=== PATIENT | female | born 1975 | race Caucasian/White ===

== ENCOUNTER 2021-08-25 11:50 | Outpatient (CLI) | payer OTHER, SELFPAY ==
--- NOTE | ~2021-08-25 | MM_ITS ---
EXAMINATION: MM screening sanya BI w keith HISTORY: Screening mammogram TECHNIQUE: Craniocaudal and mediolateral oblique 3-D tomosynthesis images were obtained and synthetic 2-D images were generated. CAD analysis was submitted and interpreted. COMPARISON: No prior mammogram is available for comparison at this institution. BREAST PARENCHYMAL COMPOSITION: There are scattered areas of fibroglandular density. FINDINGS: RIGHT BREAST: There is no evidence of suspicious mass, calcification, or architectural distortion to suggest malignancy. LEFT BREAST: There is focal asymmetry and possible architectural distortion in the middle third of th e upper outer quadrant of the breast. IMPRESSION: 1. Focal asymmetry and possible architectural distortion of the left breast which may represent the p atient's baseline however no comparison is currently available. 2. Comparison with prior mammograms is necessary. BI-RADS Category 0: Incomplete: Needs comparison with prior mammograms. Reviewed, dictated and finalized at location A. 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 Focal asymmetry and possible architectural distortion of the left breast whi ch may represent the patient's baseline however no comparison is currently avai lable. 2. Comparison with prior mammograms is necessary. BI-RADS Category 0: Incomplete: Needs comparison with prior mammograms.
== END 2021-08-25 11:51 | disposition home or self-care (01) ==
LOC: CHSIMG 11:52
PROVIDERS: PCP Family Medicine; Visit Provider Nurse Practitioner Family
DX: Z12.31 Encounter for screening mammogram for malignant neoplasm of breast (principal)
CPT/HCPCS: 77063; 77067

== ENCOUNTER 2021-12-26 10:36 | Emergency (ER) | payer OTHER, SELFPAY ==
--- NOTE | ~2021-12-26 | CT_ITS ---
EXAMINATION: CT brain wo con DATE: 12/26/2021 11:54 INDICATION: Status post fall. Left forehead injury. TECHNIQUE: Computed tomography (CT) of the head was performed without intravenous contrast. The dose- length product was 681.00 mGy-cm. Automated exposure control and iterative reconstruction technique w ere employed. COMPARISON: None FINDINGS: There is bilateral frontal lobe encephalomalacia likely from prior trauma. There is left fr ontal scalp hematoma. No acute intracranial hemorrhage, infarction, mass or mass effect. No ventricul omegaly or midline shift. No depressed skull fractures. IMPRESSION: 1. No acute intracranial abnormality. 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 Reviewed, dictated and finalized at location A. IMPRESSION: 1. No acute intracranial abnormality. 2: Chronic bilateral frontal lobe encephalomalacia, likely from prior remote t rauma.
--- NOTE | ~2021-12-26 | CT_ITS ---
EXAMINATION: CT cervical spine wo con DATE: 12/26/2021 11:54 INDICATION: Neck pain after fall TECHNIQUE: Computed tomography (CT) of the cervical spine was performed without intravenous contrast. The dose-length product was 230 mGy-cm. Automated exposure control and iterative reconstruction tech [employer] were employed. COMPARISON: None FINDINGS: Normal cervical alignment. No fracture, subluxation or dislocation. Craniovertebral junctio n is normal. Odontoid process within normal limits. There are emphysematous changes in the lung apice s. No paraspinal soft tissue abnormality. IMPRESSION: 1. No acute fracture. Reviewed, dictated and finalized at location A. IMPRESSION: 1. No acute fracture.
--- NOTE | 2021-12-26 10:52 | ECG_ITS ---
Measurements Intervals [place] Rate: 93 P: 65 TN: 156 QRS: 59 QRSD: 98 T: 64 QT: 358 QTc: 447 Interpretive Statements SINUS RHYTHM NORMAL ECG NO PREVIOUS ECG AVAILABLE FOR COMPARISON Electronically Signed On 12-28-2021 9:02:07 CDT by Ezequiel Waggoner M.D.
--- NOTE | 2021-12-26 11:13 | ED.HEATRA ---
HPI - Head Injury General Chief complaint: Fall Stated complaint: fell & hit head on bathtub, dizzy, nauseous Source: patient and family Mode of arrival: ambulatory Limitations: no limitations History of Present Illness HPI Narrative: this is a 46-year-old female that presents from home after she was in the bathroom and unsure she slipped or tripped but had a fall and hit her head in the bathtub has a non gaping laceration to the left frontal scalp, currently having a headache, was given Tylenol prior to arrival to the emergency department. Patient is having some nausea with no episodes of vomiting and complaining of a headache and neck stiffness. Patient placed in a cervical collar, the patient has neural no neurological deficits no visual loss no abnormal visual acuity no chest pain no shortness of breath no fever chills. Currently the patient is not on any blood thinners. MD Complaint: head injury and head pain Onset (ago): hour(s) Arrival Conditions: C-spine immobilization present Mechanism of Injury: fall Place: home Loss of Consciousness: no Location of injury: frontal Severity: moderate Severity scale (1-10): 6 Quality: dull Radiation: neck Other Injuries: laceration Associated symptoms: nausea Related Data Home Medications Medication Instructions Recorded Confirmed ferrous sulfate 325 mg PO DAILY 12/26/21 12/26/21 lisinopril 10 mg PO DAILY 12/26/21 12/26/21 ropinirole 0.5 mg PO HS 12/26/21 12/26/21 simvastatin 20 mg PO DAILY 12/26/21 12/26/21 Allergies Allergy/AdvReac Type Severity Reaction Status Date / Time No Known Allergies Allergy Verified 12/26/21 11:16 Review of Systems Review of Systems: All systems reviewed & are unremarkable except as noted in HPI and below [facility] Past Medical History Medical History Patient denies medical problems Exam Const: General: healthy appearing, no acute distress and alert Orientation/consciousness: patient oriented x3 HENMT: Head: normal to inspection and contusion Eyes: Conjunctivae: conjunctivae normal Pupils: Equal, round and reactive pupils present EOM: EOMs intact bilaterally Direct Ophthalmoscopy: no photophobia Neck: Neck: normal visual inspection, no lymphadenopathy and no meningeal signs Chest: Chest palpation & inspection: normal inspection of the chest Resp: Effort & Inspection: normal respiratory effort Auscultation: clear to auscultation bilaterally Cardio: Rate: regular rate Rhythm: regular rhythm GI: GI Palp: Yes Soft to palpation Percussion: Yes normal to percussion : General: Yes no CVA tenderness Skin: General skin exam: normal color Rashes: no rashes Wounds: wounds noted ( is about a 3cm non gaping laceration to left frontal scalp) Neuro: General: patient oriented x3, moves all extremities, no meningeal signs and no focal motor deficits Cranial nerves: Yes CN's II-XII intact bilaterally and Yes Nystagmus not present Speech: normal speech Gait exam (Neuro): Normal gait present Extrem: General: normal to inspection and no pedal edema Other: neck tenderness with palpation and movement Psych: Mental Status: mental status grossly normal Affect: normal affect and Anxious affect present Attitude: cooperative Course Course Emergency Course: patient had a cervical collar placed, patient was given IV Toradol and IV Zofran headache and nausea. Patient had a CT scan of the head and neck performed and reviewed with patient as well as blood work. laceration was cleaned and it is not gaping and close nicely with some secondary scab with some no intervention needed. Vital Signs Vital signs: Vital Signs Temperature 36.1 C L 12/26/21 11:20 Pulse Rate 103 H 12/26/21 11:20 Respiratory Rate 20 12/26/21 11:20 Blood Pressure 152/101 H 12/26/21 11:20 Pulse Oximetry 98 12/26/21 11:20 Temperature 36.1 C L 12/26/21 11:20 Pulse Rate 103 H 12/26/21 11:20 Respira
[2021-12-26 11:17] LABS: Basophils Absolute Auto 0.04 K/mm3 (0.00-0.10); Basophils Percent Auto 0.4 % (0.0-1.0); Eosinophils Percent Auto 0.9 % (1.0-6.0); Hematocrit 35.9 % (35.0-49.0); Hemoglobin 11.8 g/dL (12.0-15.0); Immature Granulocyte Absolute 0.04 K/mm3 (0.00-0.00); Immature Granulocyte Percent A 0.4 % (0.0-0.0); Lymphocytes Absolute Auto 1.73 K/mm3 (1.10-4.50); Lymphocytes Percent Auto 15.6 % (18.0-42.0); Mean Corpuscular HGB Conc 32.9 g/dL (32.0-36.0); Mean Corpuscular Hemoglobin 30.7 pg (27.0-31.0); Mean Corpuscular Volume 93.5 fL (78.0-102.0); Mean Platelet Volume 9.4 fl (9.2-11.8); Monocytes Absolute Auto 0.67 K/mm3 (0.10-0.90); Neutrophils Absolute Auto 8.5 K/mm3 (1.7-7.2); Neutrophils Percent Auto 76.7 % (50.0-70.0); Platelet Count Result 238 K/mm3 (150-420); Red Blood Count 3.84 M/mm3 (4.20-5.40); Red Cell Distribution Width 14.2 % (11.6-14.4); White Blood Count 11.1 K/mm3 (4.8-10.8)
[2021-12-26] MEDS: Please add drug allergy info to patient profile. XX (11:19)
[2021-12-26] MEDS: ONDANSETRON INJ 4 MG/2 ML VIAL IV PUSH (11:19)
[2021-12-26] MEDS: KETOROLAC 30 MG/ML VIAL (*BKC) IM (11:19)
[2021-12-26 11:20] VITALS: BP 152/101; PULSE 103; RESP 20; TEMP 36.1; O2SAT 98
[2021-12-26 11:32] LABS: Alanine Aminotransferase 36 U/L (14-59); Albumin Level 3.8 g/dL (3.4-5.0); Alkaline Phosphatase 89 U/L (46-116); Anion Gap 8 mmol/L (8-16); Aspartate Amino Transferase 24 U/L (15-37); Bilirubin,Total 0.2 mg/dL (0.00-1.00); Blood Urea Nitrogen 23 mg/dL (7-18); Calcium 8.6 mg/dL (8.5-10.1); Carbon Dioxide 30 mmol/L (21-32); Chloride 99 mmol/L (98-108); Estimated Glomerular Filt Rate > 60; Glucose 92 mg/dL (70-99); Osmolality Calculated 287 mOsm/kg (285-295); Potassium 3.8 mmol/L (3.5-5.1); Sodium 137 mmol/L (136-145); Total Protein 6.9 g/dL (6.4-8.2)
[2021-12-26 11:33] LABS: Add Urine Microscopic? YES; Appearance Urine Sl Cloudy (Clear); Bilirubin Urine Negative (Negative); Blood Urine Negative (Negative); Color Urine Light Yellow (Yellow); Glucose Urine UA Negative (Negative); Ketones Urine Negative (Negative); Leukocyte Esterase Ur Trace (Negative); Nitrate Urine Negative (Negative); Protein Urine Trace (Negative); Specific Grav Ur >= 1.030 (1.010-1.020); Urobilinogen Urine 0.2 mg/dL (0.2-1.0)
[2021-12-26 11:36] LABS: SPREG INTERNAL CONTROL Positive; Serum Qual hCG Negative
[2021-12-26 11:36] LABS: Bacteria Urine Trace /hpf; RBC Urine None seen /hpf (0-2); Squamous Epithelial Cell Urine Moderate /hpf (Few); WBC Urine 0-3 /hpf (0-3)
--- NOTE | 2021-12-26 12:29 | PC.NURSE ---
1045 hard c-collar applied due to YUYR awaiting CT 1225 c-collar removed CT negetive verbal order from dr Cruz
[2021-12-26] MEDS: TETANUS,DIPHTHERIA,AC PERTUSSIS ADULT 0.5 ML (ADACEL) IM (12:30)
[2021-12-26 12:50] VITALS: BP 148/93; PULSE 95; RESP 20; TEMP 36.1; O2SAT 97
== END 2021-12-26 13:03 | disposition home or self-care (01) ==
PROVIDERS: Emergency Provider Emergency Medicine; PCP Family Medicine
DX: S01.01XA Laceration without foreign body of scalp, initial encounter (principal); S16.1XXA Strain of muscle, fascia and tendon at neck level, initial encounter; W19.XXXA Unspecified fall, initial encounter
CPT/HCPCS: 36415; 70450; 72125; 80053; 81001; 84703; 85025; 90471; 90715; 93005; 96372; 96374; 99284; J1885; J2405; L0150

== ENCOUNTER 2022-05-26 15:00 | Outpatient (CLI) | payer OTHER, SELFPAY ==
--- NOTE | ~2022-05-26 | XR_ITS ---
EXAMINATION: XR shoulder RT min 2V DATE: 05/26/2022 15:22 INDICATION: Right shoulder pain. TECHNIQUE: 4 views of right shoulder were obtained. COMPARISON: None. FINDINGS: Bone alignment is normal. No fracture. Glenohumeral joint is normal. There is mild acromioc lavicular joint osteoarthritis. IMPRESSION: 1. Mild right acromioclavicular joint osteoarthritis. Reviewed, dictated and finalized at location A.
== END 2022-05-26 15:01 | disposition home or self-care (01) ==
LOC: CHSIMG 15:03
PROVIDERS: PCP Nurse Practitioner Family; Visit Provider Nurse Practitioner Family
DX: M25.511 Pain in right shoulder (principal)
CPT/HCPCS: 73030